=== PATIENT | female | born 1990 | race Caucasian/White ===

== ENCOUNTER 2016-05-13 08:57 | Emergency (ER) | payer OTHER ==
[2016-05-13 09:05] VITALS: BP 126/76; PULSE 73; TEMP 97.7; BMI 19.8
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
[2016-05-13] MEDS ORDERED: IBUPROFEN 600 MG TABLET (FP) PO ONE (12:05)
== END 2016-05-13 12:16 | disposition home or self-care (01) ==
LOC: JERFT 08:57
DX: M54.2 Cervicalgia (principal); V43.52XA Car driver injured in collision with other type car in traffic accident, initial encounter; Y92.414 Local residential or business street as the place of occurrence of the external cause; Y99.8 Other external cause status
CPT/HCPCS: 72125-TC; 84703; 99281-25